=== PATIENT | male | born 1945 | race Caucasian/White ===

== ENCOUNTER → 2017-11-04 | Outpatient (CLI) | payer OTHER ==
[~2017-11-04] MED LIST: ALEVE220 MG PO; ASPIRIN81 M1 PO; ATORVASTATIN CA40 MG PO; BRILINTA90 MG PO; CELEBREX200 MG PO; Ecotrin PO; FEOSOL325 MG PO; FINASTERIDE5 MG PO; Famvir PO; GLYCOLAX17 GM PO; LO-DOSE ASPIRIN81 M2 PO; MIRALAX17 GM PO; NITROSTAT0.4 MG SL; Percocet 5/325,Endoc PO; SIMVASTATIN10 MG PO; Senokot S,Pericolace PO; TOPROL XL25 MG PO; TRAMADOL HCL50 MG PO
== END | disposition home or self-care (01) ==
DX: R26.2 Difficulty in walking, not elsewhere classified (principal); M25.652 Stiffness of left hip, not elsewhere classified; M25.552 Pain in left hip; M62.81 Muscle weakness (generalized); M16.12 Unilateral primary osteoarthritis, left hip
CPT/HCPCS: 97161 GP; 97165 GO; 97530 GP; 97537 GO; G8978 GP; G8979 GP; G8980 GP; G8987 GO; G8988 GO; G8989 GO

== ENCOUNTER 2017-11-17 22:01 | Inpatient (IN) | payer OTHER ==
[~2017-11-17] VITALS: Ht 172.7 cm; Wt 95.7 kg
[~2017-11-17 22:01] MED LIST changes: -ATORVASTATIN CA40 MG PO; +EFFIENT10 MG PO; +IRON325 M1 PO; +LIPITOR80 MG PO
[2017-11-18 06:19] VITALS: BP 145/68
[2017-11-18 10:44] LABS: HEMATOCRIT 35.1 % (38.0-50.0); HEMOGLOBIN 11.8 G/DL (12.5-16.6); MCHC 33.6 G/DL (30.0-36.0); MCV 95.1 FL (86-99); PLATELET COUNT 174 K/uL (156-360); RBC DIS.WIDTH-CV 12.8 % (11.8-14.6); RBC DIS.WIDTH-SD 44.7 % (39-53); RED BLOOD COUNT 3.69 M/uL (4.00-5.50); WHITE BLOOD COUNT 10.4 K/uL (4.1-10.2)
[2017-11-18 14:55] VITALS: BP 157/70
[2017-11-18 20:05] VITALS: BP 129/59
[2017-11-19] VITALS (15 sets, daily range): BP systolic 124–158; BP diastolic 58–75
[2017-11-19 05:53] LABS: CHLORIDE 102 MEQ/L (99-109); POTASSIUM 4.6 MEQ/L (3.7-5.4); SODIUM 134 MEQ/L (136-147)
[2017-11-19 05:59] LABS: CREATININE 1.1 MG/DL (0.6-1.3); GFR ESTIMATE (CALCULATED) > 59 mL/min/ (58.99-99999); GLUCOSE 137 mg/dL (70-99); UREA NITROGEN (BUN) 19 mg/dL (9-23)
[2017-11-19 10:13] LABS: HEMATOCRIT 30.2 % (38.0-50.0); HEMOGLOBIN 10.1 G/DL (12.5-16.6); MCV 93.8 FL (86-99)
[2017-11-19 15:31] LABS: HEMATOCRIT 27.7 % (38.0-50.0); HEMOGLOBIN 9.3 G/DL (12.5-16.6); MCH 31.4 PG (29.0-34.0); MCHC 33.6 G/DL (30.0-36.0); MCV 93.6 FL (86-99); PLATELET COUNT 148 K/uL (156-360); RBC DIS.WIDTH-CV 12.8 % (11.8-14.6); RBC DIS.WIDTH-SD 43.8 % (39-53); RED BLOOD COUNT 2.96 M/uL (4.00-5.50); WHITE BLOOD COUNT 9.7 K/uL (4.1-10.2)
[2017-11-19 15:54] LABS: CK-MB 6.7 ng/mL (0.0-4.9)
[2017-11-19 15:55] LABS: TROP-I INTERPRETATION POSITIVE; TROPONIN-I 0.74 ng/mL (0.0-0.30)
[2017-11-19 16:06] LABS: CHLORIDE 99 MEQ/L (99-109); POTASSIUM 4.3 MEQ/L (3.7-5.4); SODIUM 131 MEQ/L (136-147)
[2017-11-19 16:11] LABS: GFR ESTIMATE (CALCULATED) > 59 mL/min/ (58.99-99999); GLUCOSE 134 mg/dL (70-99); UREA NITROGEN (BUN) 18 mg/dL (9-23)
[2017-11-19 16:27] LABS: CKMB RELATIVE INDEX 1.4 (0.0-3.9); CREATINE KINASE 465 IU/L (1-294); TOTAL CK 465 IU/L (1-294)
[2017-11-19 17:09] LABS: INTER. NORMALIZED RATIO 1.2
[2017-11-19 17:12] LABS: PTT 27.1 SEC (25-37)
[2017-11-19 18:57] LABS: TROP-I INTERPRETATION POSITIVE
[2017-11-20] VITALS (9 sets, daily range): BP systolic 119–142; BP diastolic 58–71
[2017-11-20 05:27] LABS: TROP-I INTERPRETATION POSITIVE
[2017-11-20 05:29] LABS: CHLORIDE 98 MEQ/L (99-109); GFR ESTIMATE (CALCULATED) > 59 mL/min/ (58.99-99999); GLUCOSE 131 mg/dL (70-99); POTASSIUM 3.8 MEQ/L (3.7-5.4); SODIUM 131 MEQ/L (136-147); UREA NITROGEN (BUN) 15 mg/dL (9-23)
[2017-11-20 05:38] LABS: HEMATOCRIT 29.4 % (38.0-50.0); HEMOGLOBIN 10.1 G/DL (12.5-16.6); MCHC 34.4 G/DL (30.0-36.0); PLATELET COUNT 147 K/uL (156-360); RBC DIS.WIDTH-CV 15.8 % (11.8-14.6); RBC DIS.WIDTH-SD 49.1 % (39-53); RED BLOOD COUNT 3.37 M/uL (4.00-5.50); WHITE BLOOD COUNT 9.4 K/uL (4.1-10.2)
[2017-11-20 05:43] LABS: MCV 87.2 FL (86-99)
[2017-11-21 04:08] VITALS: BP 130/63
[2017-11-21 05:54] LABS: HEMATOCRIT 29.7 % (38.0-50.0); HEMOGLOBIN 10.1 G/DL (12.5-16.6); MCH 30.1 PG (29.0-34.0); MCV 88.4 FL (86-99); PLATELET COUNT 172 K/uL (156-360); RBC DIS.WIDTH-CV 15.6 % (11.8-14.6); RBC DIS.WIDTH-SD 49.3 % (39-53); RED BLOOD COUNT 3.36 M/uL (4.00-5.50); WHITE BLOOD COUNT 8.1 K/uL (4.1-10.2)
[2017-11-21 06:24] LABS: CHLORIDE 96 MEQ/L (99-109); GFR ESTIMATE (CALCULATED) > 59 mL/min/ (58.99-99999); GLUCOSE 103 mg/dL (70-99); POTASSIUM 3.8 MEQ/L (3.7-5.4); SODIUM 132 MEQ/L (136-147); UREA NITROGEN (BUN) 12 mg/dL (9-23)
[2017-11-21] MEDS ORDERED: LOVENOX40 MG/0.4 SC (07:19)
[2017-11-21] MEDS ORDERED: CYCLOBENZAPRINE10 MG PO (07:19)
[2017-11-21] MEDS ORDERED: HYDROCODON-ACE1 EAC7 PO (07:19)
[2017-11-21] MEDS ORDERED: ATENOLOL25 MG PO (07:28)
[2017-11-21 07:46] VITALS: BP 113/58
== END 2017-11-21 11:31 | disposition home health service (06) | DRG 469 ==
LOC: CANRESERV 22:01 → ENRESERV 22:01 → 2SOUTH 11-18 05:35 → 3EAST 11-18 05:35 → ENRESERV 11-18 09:03 → CANRESERV 11-18 09:03 → 2SOUTH 11-18 09:30 → ENRESERV 11-18 12:13 → 2SOUTH 11-18 14:28 → 3EAST 11-18 14:29 → ENRESERV 11-19 16:13 → 4EAST 11-19 17:30 → ENPENDDIS 11-21 → 4EAST 11-21 11:31
PROVIDERS: Internal Medicine; Orthopaedic Surgery
PROC: 30233N1 Transfusion of Nonautologous Red Blood Cells into Peripheral Vein, Percutaneous Approach (ICD-10-PCS; principal; 2017-11-18)
PROC: 0SRB02Z Replacement of Left Hip Joint with Metal on Polyethylene Synthetic Substitute, Open Approach (ICD-10-PCS; 2017-11-18)
DX: M16.12 Unilateral primary osteoarthritis, left hip (principal); D62 Acute posthemorrhagic anemia; E87.1 Hypo-osmolality and hyponatremia; I25.10 Atherosclerotic heart disease of native coronary artery without angina pectoris; E78.5 Hyperlipidemia, unspecified; I34.1 Nonrheumatic mitral (valve) prolapse; Z96.653 Presence of artificial knee joint, bilateral; M54.30 Sciatica, unspecified side; Z95.5 Presence of coronary angioplasty implant and graft; Z79.82 Long term (current) use of aspirin; Z82.49 Family history of ischemic heart disease and other diseases of the circulatory system; I21.A1 Myocardial infarction type 2; Z68.34 Body mass index [BMI] 34.0-34.9, adult; I25.2 Old myocardial infarction
CPT/HCPCS: 71010; 73501; 73522; 80048; 80048 91; 82550 91; 82553; 82948; 84484; 85014; 85018; 85027; 85610; 85730; 86850; 86900; 86901; 86920; 93005; 93306; 94799; C1713; J0131; J0690; J1100; J1170; J1650; J1940; J2250; J2405; J7050; P9016; Q0175